=== PATIENT | male | born 2005 | race Caucasian/White ===

== ENCOUNTER 2023-08-26 03:44 | Emergency (ER) | payer BC, SELFPAY ==
--- NOTE | 2023-08-26 03:47 | ED_ITS ---
Discharge Plan Disposition Patient Disposition: Home, Self-Care Activity Restrictions/Add. Instructions Additional Instructions/Restrictions: Please follow-up with your primary care provider. Please return to the emergency department if you develop any new or worsening symptoms or become concerned for your health. Please have ashlie removed in probably 7 days. Please monitor for signs of infection. Clinical Impressions Clinical Impression: Laceration of scalp Qualifiers: Encounter type: initial encounter Qualified Code(s): S01.01XA - Laceration without foreign body of scalp, initial encounter Instructions Patient Instructions: DI for Laceration Repair Discharge ED Provider: Tai Rodgers General Adult HPI General Chief complaint: Wound/Laceration Stated complaint: AO 0315 head injury Time Seen by Provider: 08/26/23 03:47 History of Present Illness HPI narrative: 17-year-old male, previously healthy presents with scalp laceration. He reports that he was outside in the snow when he slipped and fell, striking the top of his head against a patio table. He reports that it was bleeding significantly and so he presents for further assessment. He denies any loss of consciousness. Denies any other complaints at this time. Bleeding has stopped by the time of arrival. Related Data Allergies Allergy/AdvReac Type Severity Reaction Status Date / Time No Known Allergies Allergy Verified 08/26/23 03:59 [facility] Disclaimer: The information contained in this section may have been updated after the patient was seen, as this information can be updated by other users. Social History Smoking Status: Never smoker alcohol intake: never current occupational status: other Travel in the last 8 weeks: None ROS Obtained: Yes All systems reviewed & no additional complaints except as documented Physical Exam General General appearance: alert and in no apparent distress Head Head exam: normocephalic and other (Approximately 1 to 2 cm V-shaped laceration over the frontal scalp, hemostatic, no hematoma, no palpable skull fracture.) Eye Eye exam: Present normal appearance, PERRL and EOMI ENT ENT exam: Present normal oropharynx and normal external ear exam Neck Neck exam: Present normal inspection and full ROM Chest Chest inspection: Present normal inspection and symmetric chest wall rise; Absent tenderness Respiratory Respiratory exam: Present normal lung sounds bilaterally; Absent respiratory distress Cardiovascular Cardiovascular exam: Present regular rate and normal rhythm Abdominal Exam Abdominal exam: Present soft; Absent distention, tenderness or guarding Extremities Exam Extremities exam: Present normal inspection; Absent edema or joint swelling Back Exam Back exam: Present normal inspection; Absent tenderness Neurological Exam Neurological exam: Present alert and oriented X3; Absent motor sensory deficit Psychiatric Psychiatric exam: Present normal affect and normal mood Skin Skin exam: Present warm, dry and normal color Lymphatic Lymphatic Findings: no adenopathy Medical Decision Making Medical Records Medical records reviewed: Yes I reviewed the patient's medical records. [place] Inquiry Pt receiving controlled substance: No [place] was queried for this patient: No Vital Signs: 08/26/23 03:53 Temperature 98.6 F Temperature Source Oral Pulse Rate [Left Radial] 130 H Respiratory Rate 20 Blood Pressure [Right Arm] 174/96 H Blood Pressure Mean [Right Arm] 122 Blood Pressure Source [Right Arm] Automatic Cuff Blood Pressure Position [Right Arm] Sitting 02 Sat by Pulse Oximetry 98 Oxygen Delivery Method Room Air Lab Data Lab results reviewed: Yes I reviewed the patient's lab results. Orders (Tests/Meds): ED MEDICATIONS Generic Name Dose Route Start Last Admin Trade Name Freq PRN Reason Stop Dose Admin Tetanus/Reduced Diphtheria/Acell Pertussis 0.5 ml 08/26/23 03:56 Tet/Diphth/Pert-Adult 0.5ml Syringe IM 08/26/23 03:57 .ONCE ONE Medical Decision Narrative: 17-year-old male previously healthy presents with scalp laceration after a fall shortly prior to arrival. Differential diagnosis includes but limited to intra cranial trauma, skull fracture, laceration. Patient has a small laceration but no other signs of trauma and is otherwise well-appearing. Patient was given a tetanus shot as he is unsure of his last tetanus prophylaxis. Wound was copiously irrigated and repaired at bedside by me utilizing 2 ashlie. Patient discharged in stable condition with return precautions and wound care instructions. Procedures Risk/Benefits of Procedure(s) Were Explained: Yes Laceration Laceration 1: Site: scalp Size (cm): 1.5 Description: flap Depth: simple, single layer Pre-repair: wound explored, irrigated extensively and deep structures intact Skin layer closed with: other (2 ashlie) Critical Care Critical Care Time Critical Care Time: No
[2023-08-26 03:53] VITALS: BP 174/96; PULSE 130; RESP 20; TEMP 37; O2SAT 98; BMI 20.2
[2023-08-26] MEDS: TET/DIPHTH/PERT-ADULT 0.5ML SYRINGE 0.5 ML IM (03:59)
[2023-08-26 04:11] VITALS: BP 144/87; PULSE 117; RESP 18; TEMP 37; O2SAT 98
== END 2023-08-26 04:05 | disposition home or self-care (01) ==
PROVIDERS: Emergency Provider Emergency Medicine
DX: S01.01XA Laceration without foreign body of scalp, initial encounter (principal); Z23 Encounter for immunization; S09.90XA Unspecified injury of head, initial encounter; W00.0XXA Fall on same level due to ice and snow, initial encounter
CPT/HCPCS: 12001; 90471; 90715; 99283